=== PATIENT | male | born 1980 | race Two or more races ===

== ENCOUNTER 2021-09-27 22:09 | Emergency (ER) | payer MEDICAID ==
[~2021-09-27] VITALS: Ht 177.8 cm; Wt 113.4 kg
[2021-09-28] MEDS ORDERED: CEPH500C PO (02:18)
[2021-09-28 02:30] VITALS: BP 110/50
== END 2021-09-28 02:31 | disposition home or self-care (01) ==
LOC: ER 22:11
DX: S81.802A Unspecified open wound, left lower leg, initial encounter (principal); X58.XXXA Exposure to other specified factors, initial encounter; Y93.89 Activity, other specified; Y92.89 Other specified places as the place of occurrence of the external cause; Y99.8 Other external cause status